=== PATIENT | female | born 1980 | race Caucasian/White ===

== ENCOUNTER 2018-03-02 17:20 | Inpatient (IN) | payer MEDICAID ==
[~2018-03-02] VITALS: Ht 152.4 cm; Wt 76.0 kg
[2018-03-02 17:36] VITALS: Ht 152.4 cm; Wt 76.0 kg
[2018-03-02 19:51] LABS: PLATELET COUNT 198 x10^3mcL (130-400); RED CELL DISTRIBUTION WIDTH 13.4 % (11.5-14.5)
[2018-03-02 20:06] LABS: ALBUMIN 3.2 g/dL (3.4-5.0); ALKALINE PHOSPHATASE 91 U/L (46-116); AMYLASE 53 U/L (25-115); BILIRUBIN TOTAL 0.8 mg/dL (0.20-1.00); CHLORIDE SERUM 96 mmol/L (98-107); GFR1 > 60 mL/min; GLUCOSE SERUM 377 mg/dL (74-106); LIPASE 638 IU/L (73-393); POTASSIUM SERUM 3.2 mmol/L (3.5-5.1); SODIUM SERUM 129 mmol/L (136-145)
[2018-03-02 20:39] LABS: AST/SGOT 111 U/L (15-37); CALCIUM 8.3 mg/dL (8.5-10.1); TOTAL PROTEIN, SERUM 7.4 g/dL (6.4-8.2)
[2018-03-02 21:43] LABS: BAND NEUTROPHIL 1 % (0-10); BASOPHIL 0 % (0-2); SEGMENTED NEUTROPHILS 56 % (37-75); rbc morphology (normal/abnorm) NORMAL (NORMAL)
[2018-03-02 21:47] VITALS: BP 178/104
[2018-03-02 22:09] LABS: MAGNESIUM 1.8 mg/dL (1.8-2.4); PHOSPHOROUS 2.6 mg/dL (2.5-4.9)
[2018-03-02 22:32] LABS: CHOLESTEROL 397 mg/dL (<200); HDL CHOLESTEROL 22 mg/dL (40-60)
[2018-03-02 22:33] LABS: TRIGLYCERIDES 4106 mg/dL (<150)
[2018-03-02 23:01] LABS: T3 TOTAL 1.06 ng/mL
[2018-03-02 23:07] LABS: FREE T4 0.99 ng/dL (0.76-1.46); T4(THYROXINE) 9.4 ug/dL (4.7-13.3)
[2018-03-02 23:08] LABS: FREE THYROXINE INDEX 0.7 ug/dL (1.4-4.5)
[2018-03-02 23:12] LABS: CREATININE SERUM 0.6 mg/dL (0.6-1.0)
[2018-03-02 23:25] LABS: ALT/SGPT 113 U/L (14-59)
[2018-03-03] VITALS (8 sets, daily range): BP systolic 117–172; BP diastolic 65–98
[2018-03-03 07:59] LABS: BASOPHIL % 0.2 % (0-2); PLATELET COUNT 161 x10^3mcL (130-400); RED CELL DISTRIBUTION WIDTH 13.6 % (11.5-14.5)
[2018-03-03 09:05] LABS: CALCIUM 7.4 mg/dL (8.5-10.1); CARBON DIOXIDE 20.1 mmol/L (21-32); CHLORIDE SERUM 101 mmol/L (98-107); CREATININE SERUM 0.4 mg/dL (0.6-1.0); GFR1 > 60 mL/min; GLUCOSE SERUM 275 mg/dL (74-106); POTASSIUM SERUM 3.4 mmol/L (3.5-5.1); SODIUM SERUM 134 mmol/L (136-145)
[2018-03-03 09:17] LABS: microscopic required? YES; urine erythrocyte 1+ (NEGATIVE)
[2018-03-03 09:40] LABS: AMPHETAMINE QUAL UR NONE DETECTED (See below)
[2018-03-03 15:43] LABS: BILIRUBIN DIRECT 0.02 mg/dL (0.0-0.2); BILIRUBIN TOTAL 0.52 mg/dL (0.20-1.00); TOTAL PROTEIN, SERUM 6.6 g/dL (6.4-8.2)
[2018-03-03 15:54] LABS: ALBUMIN 2.9 g/dL (3.4-5.0)
[2018-03-04 06:15] VITALS: BP 117/64
[2018-03-04 07:50] LABS: BASOPHIL % 0.4 % (0-2); PLATELET COUNT 180 x10^3mcL (130-400); RED CELL DISTRIBUTION WIDTH 14.1 % (11.5-14.5)
[2018-03-04 08:02] LABS: ALKALINE PHOSPHATASE 67 U/L (46-116); ALT/SGPT 37 U/L (14-59); AST/SGOT 34 U/L (15-37); CALCIUM 7.8 mg/dL (8.5-10.1); CARBON DIOXIDE 20.2 mmol/L (21-32); CHLORIDE SERUM 104 mmol/L (98-107); CREATININE SERUM 0.6 mg/dL (0.6-1.0); GFR1 > 60 mL/min; GLUCOSE SERUM 202 mg/dL (74-106); LIPASE 277 IU/L (73-393); MAGNESIUM 1.8 mg/dL (1.8-2.4); POTASSIUM SERUM 3.5 mmol/L (3.5-5.1); SODIUM SERUM 134 mmol/L (136-145); TOTAL PROTEIN, SERUM 6.3 g/dL (6.4-8.2)
[2018-03-04 08:29] LABS: ALBUMIN 2.6 g/dL (3.4-5.0)
[2018-03-04 15:02] VITALS: BP 122/69
[2018-03-04 16:50] VITALS: BP 121/65
[2018-03-04 18:49] VITALS: BP 133/75
[2018-03-05 05:17] VITALS: BP 141/87
[2018-03-05 07:14] LABS: BASOPHIL % 0.4 % (0-2); PLATELET COUNT 169 x10^3mcL (130-400); RED CELL DISTRIBUTION WIDTH 14.3 % (11.5-14.5)
[2018-03-05 07:31] LABS: CALCIUM 7.1 mg/dL (8.5-10.1); CARBON DIOXIDE 24.4 mmol/L (21-32); CHLORIDE SERUM 104 mmol/L (98-107); CREATININE SERUM 0.4 mg/dL (0.6-1.0); GFR1 > 60 mL/min; GLUCOSE SERUM 221 mg/dL (74-106); MAGNESIUM 1.5 mg/dL (1.8-2.4); PHOSPHOROUS 2.2 mg/dL (2.5-4.9); POTASSIUM SERUM 3.2 mmol/L (3.5-5.1); SODIUM SERUM 138 mmol/L (136-145)
[2018-03-05 08:24] VITALS: BP 148/81
[2018-03-05] MEDS ORDERED: FLA500 PO (13:34)
[2018-03-05] MEDS ORDERED: CIPRO500 MG PO (13:34)
[2018-03-05 13:41] VITALS: BP 148/81
[2018-03-05] MEDS ORDERED: ZES10 PO (14:19)
[2018-03-05] MEDS ORDERED: METFORMIN HCL500 MG PO (14:19)
[2018-03-05] MEDS ORDERED: ATORVASTATIN CA40 M1 PO (14:19)
== END 2018-03-05 19:20 | disposition home or self-care (01) | DRG 263 ==
LOC: ED 17:20 → DU 20:44 → MU 20:44 → DU 23:19 → MU 03-04 10:30
PROVIDERS: Internal Medicine; Specialist; Surgery
PROC: BF111ZZ Fluoroscopy of Biliary and Pancreatic Ducts using Low Osmolar Contrast (ICD-10-PCS; 2018-03-03)
PROC: 0FT44ZZ Resection of Gallbladder, Percutaneous Endoscopic Approach (ICD-10-PCS; principal; 2018-03-03 16:00)
DX: K85.10 Biliary acute pancreatitis without necrosis or infection (principal); N17.0 Acute kidney failure with tubular necrosis; E11.65 Type 2 diabetes mellitus with hyperglycemia; K72.90 Hepatic failure, unspecified without coma; K76.0 Fatty (change of) liver, not elsewhere classified; E44.1 Mild protein-calorie malnutrition; E87.1 Hypo-osmolality and hyponatremia; I16.0 Hypertensive urgency; E87.6 Hypokalemia; I10 Essential (primary) hypertension; E66.9 Obesity, unspecified; Z68.32 Body mass index [BMI] 32.0-32.9, adult
CPT/HCPCS: 83880; 84439; 94150; C1758; C1887; G0480; J0330; J0690; J0696; J1170; J1885; J1956; J2175; J2250; J2405; J2704; J3010; J3480; J3490; J7030; J7120; Q0092; Q9967